=== PATIENT | female | born 1980 | race Hispanic/Latino ===

== ENCOUNTER → 2021-02-06 | Outpatient (CLI) | payer MEDICAID | END | disposition home or self-care (01) | LOC: SHCH 14:48 | PROVIDERS: ATTEND Internal Medicine Cardiovascular Disease | DX: R07.9 Chest pain, unspecified (principal) | CPT/HCPCS: 93306; 93356 ==

== ENCOUNTER 2024-11-07 06:46 | Day surgery (SDC) | payer MEDICAID ==
[~2024-11-07] VITALS: Ht 149.9 cm; Wt 59.0 kg
[2024-11-07] VITALS (11 sets, daily range): BP systolic 97–129; BP diastolic 46–69; PULSE 62–79; RESP 14–18; TEMP 97.4–97.6
[~2024-11-07 06:46] MED LIST: AMLO-257 PO; HYDR200T75 PO; PILOCARPINE PO
[2024-11-07] MEDS: 0.9%NACL 1000ML 1,000 ML IV ONE (08:24)
[2024-11-07] MEDS ORDERED: proPOFol 10 MG/ML 20ML VIAL IV ONE (08:53)
== END 2024-11-07 10:07 | disposition home or self-care (01) ==
LOC: SUH 06:46 → DAH 06:46 → SUH 10:07
PROVIDERS: ATTEND Internal Medicine Gastroenterology
DX: R13.10 Dysphagia, unspecified (principal); R14.0 Abdominal distension (gaseous); K29.50 Unspecified chronic gastritis without bleeding; F41.9 Anxiety disorder, unspecified; Z98.51 Tubal ligation status; Z98.891 History of uterine scar from previous surgery; Z88.2 Allergy status to sulfonamides; Z79.899 Other long term (current) drug therapy; Z98.890 Other specified postprocedural states
CPT/HCPCS: 43239; 43248; 81025; J7030; J3490; A4615; A4215; A4223; A4222; A4221; A4663; A4606; J2704